=== PATIENT | male | born 1965 | race Hispanic/Latino ===

== ENCOUNTER 2019-11-02 20:21 | Emergency (ER) | payer SELFPAY ==
--- NOTE | 2019-11-02 21:48 | RAD ---
3 views left shoulder: 11/02/2019 COMPARISON: None HISTORY: Fall, trauma, pain FINDINGS: No fracture or dislocation. No radiopaque foreign body or subcutaneous gas. IMPRESSION: No acute findings.
[2019-11-02] MEDS ORDERED: HYDROcodone/Acetaminophen 5/325 mg Tablet ONE (22:28)
--- NOTE | 2019-11-02 22:37 | CT ---
CT OF THE FACIAL BONES: 11/02/19 COMPARISON: None. HISTORY: Fall, trauma, pain. TECHNIQUE: Axial CT imaging at 2.5 mm intervals through the facial bones with coronal and sagittal reformatted i maging. FINDINGS: Partially imaged brain parenchyma appears grossly unremarkable. 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 The frontal sinuses, maxillary sinuses, sphenoid sinuses, and ethmoid air cells are grossly unremarka ble aside from mild scattered mucosal thickening. The mastoid air cells appear grossly unremarkable. Partially visualized cervical spine demonstrates degenerative change at the atlantoaxial interspace. There is prominent degenerative change involving bilateral temporomandibular joints, especially on th e right. The nasal bones, zygomatic arches, and pterygoid plates appear intact. No displaced maxillary or bushra ibular fracture. Orbital floor and medial orbital wall appears intact bilaterally. Nonspecific prominence of bilateral palatine tonsils are noted. There is soft tissue swelling anterior to the mandibular symphysis, right greater than left. IMPRESSION: Incidental findings as detailed above. No acute fracture. Soft tissue swelling as above. POS: TAM
== END 2019-11-03 00:05 | disposition home or self-care (01) ==
LOC: ERS 20:21
DX: S01.511A Laceration without foreign body of lip, initial encounter (principal); W19.XXXA Unspecified fall, initial encounter; Y93.66 Activity, soccer; Y99.8 Other external cause status
CPT/HCPCS: 12011; 70486